=== PATIENT | male | born 2000 | race Caucasian/White ===

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

== ENCOUNTER 2019-02-06 10:39 | Emergency (ER) | payer OTHER, SELFPAY ==
[2019-02-06] MEDS ORDERED: Ondansetron ODT 4 MG TAB ONE (10:55)
[2019-02-06] MEDS ORDERED: Ibuprofen 600 MG TAB ONE (10:55)
== END 2019-02-06 12:08 | disposition home or self-care (01) ==
LOC: SCSER 10:39
DX: B34.9 Viral infection, unspecified (principal)
CPT/HCPCS: 99283; Q0162